=== PATIENT | female | born 1990 | race African-American/Black ===

== ENCOUNTER 2016-09-07 01:17 | Inpatient (IN) | payer OTHER ==
[~2016-09-07] VITALS: Ht 172.7 cm; Wt 166.0 kg
--- NOTE | 2016-09-07 09:33 | Operative Report ---
Operative/Inv Procedure Report Surgery Date: 09/07/16 Name of Procedure: Laparoscopic Sleeve Gastrectomy Pre-Operative Diagnosis: Morbid Obesity BMI 58, YING Post-Operative Diagnosis: Same Estimated Blood Loss: less than 50ml Surgeon/Facility Service Associate: GERARDO ZAMBRANO DO Anesthesia: general endotracheal tube IV Fluids: 1400 cc Drains: 10 Fr RUQ JOSE Drain Specimens: Stomach Complications: None Condition: Stable Operative Indication: This is a 26-year-old female presented to the office for workup for bariatric surgery. After appropriate workup was completed we discussed with the patient the band, the sleeve, and the gastric bypass. The patient chose to undergo a sleeve gastrectomy. All risks including but not limited to bleeding, infection, leak, stricture, injury to surrounding bowel/esophagus/stomach/liver/spleen, long-term reflux, DVT/PE, and mortality of 05/999 patients were discussed in detail. The patient understood everything and decided to proceed. Operative/Procedure Note Note: The patient was brought to the operating room and placed on the operating room table in supine position. Venodyne stockings were placed and adequate general endotracheal anesthesia was obtained. The patient was prepped and draped in standard surgical fashion. Began the procedure by making a 2 cm transverse incision supraumbilically and slightly to the left of the midline. Then using a 12 mm clear Visiport and a 10 mm 0 laparoscope, the abdominal cavity was accessed. Great care was taken to go through the anterior rectus sheath, the posterior rectus sheath, and through the peritoneum. Once we entered the peritoneum the abdominal cavity was insufflated to 15 mmHg. Upon initial examination no obvious gross pathology was seen. Accessory trocars were placed, 5 mm in the epigastrium for the Gabby liver retractor. The retractor was inserted and the liver was retracted anteriorly exposing the hiatus, no hiatal hernia was seen. 5 mm ports were placed in the right and left upper quadrant, a 5 mm left lateral port, and a 15 mm right lateral port. Began the procedure by mobilizing the greater curvature of the stomach approximately 7 cm from the pylorus. Some omental adhesions to the anterior abdominal wall were taken down in the left upper quadrant. Once the retrogastric space was reached the whole greater curvature was mobilized maintaining hemostasis using Harmonic scalpel. Full hiatal dissection was performed, no hiatal hernia was seen. Posterior adhesions were taken down using Harmonic scalpel as well. Once the stomach was adequately mobilized a 38 Ivorian bougie was inserted and placed along the lesser curvature of the stomach. Once the bougie was in the appropriate position will began creating our sleeve, two 60 mm black staple loads with seamguard followed by two 60 mm purple staple loads with seamguard as well. Great care was taken to leave ample room at the incisura angularis, to prevent any twisting or kinking of the sleeve, to stay lateral to the esophagogastric fat pad, and to do a full fundal excision. At the completion of the staple line the staple line was examined, it appeared intact and no obvious bleeding was noted. The bougie was removed, the sleeve was lying nicely without any twisting or kinking. The resected stomach was removed through the right lateral port site. The port and the left upper quadrant were irrigated until clear. A 10 Ivorian JOSE drain was placed through the right upper quadrant incision under the liver and over the spleen. All ports were removed under direct visualization no obvious bleeding was noted. The 15 mm port site fascia was closed using 0 Vicryl suture. The skin was closed using 4-0 Monocryl. Steri-Strips and dressings were placed. The patient was successfully extubated and transferred to the recovery room in stable condition. The patient tolerated the procedure well with no complications. Findings: no hiatal hernia, 38 Fr Bougie CC: ROSEANNE POMPA APRN
--- NOTE | 2016-09-07 09:51 | Admission Core Measures ---
Admission Lab Results I reviewed the following labs: Laboratory Tests 09/07 606 Urines Urine Test NEGATIVE Admission Meds I reviewed the following Meds: Current Medications Sig/Yolanda Start time Last Medication Dose Stop Time Status Admin Cefazolin Sodium 3,000 MG ONCE 09/07 NR (Kefzol-Ancef Inj) 09/07 2358 Heparin Sodium 5,000 UNIT ONCE 09/07 AC (Porcine) 09/07 2358 Acute Coronary Syndrome Inclusion Criteria ACS Diagnosis No Inpatient Core Measures LDL Reminder: If No, please order W/I first 24hr of stay Congestive Heart Failure Inclusion Criteria CHF Diagnosis No Cerebrovascular accident Inclusion Criteria CVA/TIA Diagnosis No Inpatient Core Measures Bedside Swallow Eval Reminder: If BSE failed, place ST order Antithrombotic Reminder: Order Antithrombotic Medication by end of day 2 Antithrombotic Reminder: Document Reason Antithrombotic Not ordered by end of day 2 AFIB/Flutter Reminder: If Present, add to problem list AFIB/Flutter Reminder: Order Anticoag Medication for pts with AFIB/Flutter Atherosclerosis Reminder: If Present, add to problem list LDL Reminder: If No, please order W/I first 24hr of stay PT Order Reminder: If No, please order Venous thromboembolism Inpatient Core Measures VTE Risk Factors: Obesity, Surgery No [facility] VTE prophylaxis d/t No contraindications No VTE Pharm Prophylaxis d/t No contraindications Inclusion Criteria - Per Current guidelines, there needs to be overlap - treatment for the first 5 days of Warfarin therapy. - Parenteral Anticoagulation (IV or SC) needs to be - given along with Warfarin therapy. VTE Diagnosis No VTE Type NONE VTE Confirmed by (Test) NONE Problem List As ranked by this Provider includes Assessment & Plan 1. S/P laparoscopic sleeve gastrectomy 2. Sleep apnea 3. Morbid obesity
[2016-09-07] MEDS ORDERED: LOVENOX40 MG/0.1 SC (09:52)
[2016-09-07] MEDS ORDERED: HYCET 7.5 MG-3473 ML PO (09:52)
[2016-09-07] MEDS ORDERED: PROTONIX40 M3 PO (09:52)
[2016-09-07 11:35] VITALS: BP 126/83
--- NOTE | 2016-09-07 12:00 | Patient Discharge Instructions ---
Discharge Instructions General Discharge Information You were seen/treated for: MORBID OBESITY, HX SLEEP APNEA You had these procedures: LAPAROSCOPIC SLEEVE GASTRECTOMY (09/07/16) Watch for these problems: FEVER>101.3, INCREASED PAIN, REDNESS/SWELLING/DRAINAGE, SHORTNESS OF BREATH, CHEST PAIN, DIZZINESS No bath, but you may shower: Yes Other wound care: OK TO REMOVE OUTER DRESSINGS. LEAVE WHITE STERI STRIPS IN PLACE. EXPECT DRAINAGE FROM PREVIOUS DRAIN SITE FOR A FEW DAYS. Diet Continue normal diet: No Recommended Diet: Bariatric Additional DIET Information: WEEKLY BARIATRIC STAGE DIET ADVANCEMENTS TOLERATED, DIRECTED Activity Full Activity/No Limits: No Activity Self Limited: Yes Pounds, do NOT lift more than: 10 Other activity limits: WALK FREQUENTLY Acute Coronary Syndrome Inclusion Criteria At DC or during hospital stay patient has or had the following: ACS DIAGNOSIS No Discharge Core Measures Meds if any: Prescribed or Continued at Discharge Meds if any: NOT Prescribed or Continued at Discharge Congestive Heart Failure Inclusion Criteria At DC or during hospital stay patient has or had the following: CHF DIAGNOSIS No Discharge Core Measures Meds if any: Prescribed or Continued at Discharge Meds if any: NOT Prescribed or Continued at Discharge Cerebrovascular accident Inclusion Criteria At DC or during hospital stay patient has or had the following: CVA/TIA Diagnosis No Discharge Core Measures Meds if any: Prescribed or Continued at Discharge Meds if any: NOT Prescribed or Continued at Discharge Venous thromboembolism Inclusion Criteria VTE Diagnosis No VTE Type NONE VTE Confirmed by (Test) NONE Discharge Core Measures - Per Current guidelines, there needs to be overlap - treatment for the first 5 days of Warfarin therapy. - If discharged on Warfarin prior to 5 days of - overlap therapy, the patient will need to be - assessed for post discharge needs including - *Post discharge parental anticoagulation - *Warfarin and/or parental anticoagulation education - *Follow up date to check INR post discharge At least 5 days overlap therapy as Inpatient No Meds if any: Prescribed or Continued at Discharge Note: Overlap Therapy is Warfarin and Anticoagulant Meds if any: NOT Prescribed or Continued at Discharge
--- NOTE | 2016-09-07 13:05 | PN- Bariatrics ---
Subjective Subjective: The patient was seen this afternoon postoperatively. She complains of epigastric discomfort but is otherwise comfortable with current pain regiment. She is tolerating small amounts of a stage I diet without nausea and has yet to void postoperatively. Patient has no other complaints at the current time and denies any chest pain or difficulty breathing. Objective Vital Signs and I&Os Vital Signs Date Time Temp Pulse Resp B/P B/P Pulse O2 O2 Flow FiO2 Mean Ox Delivery Rate 09/07 1135 97.5 71 16 126/83 100 Nasal 3.0L Cannula 09/07 1130 100 Nasal 3.0L Cannula Intake & Output 09/07 0800 09/07 0000 09/06 1600 09/06 0800 09/06 0000 Intake Total Output Total Balance Patient 366 lb 366 lb Weight Weight Reported by Patient Measurement Method Physical Exam: Gen.: Alert and in no obvious distress Skin: Warm and dry Cardiac: S1 and S2 regular Pulmonary: Bilateral breath sounds are equal and decreased at bases Abdomen: Soft, obese, appropriate incisional tenderness, bowel sounds sluggish. Port sites are clean, dry, and intact. His JOSE 1 holding suction with serosanguineous drainage in the bulb. Extremities: Bilateral lower extremities are warm without calf tenderness or significant edema. Assessment/Plan Assessment/Plan Assessment: 26-year-old female status post laparoscopic sleeve gastrectomy. Postoperative the patient is progressing as expected and her pain is under adequate control. Plan: Continue on stage I diet until midnight then remain nothing by mouth for upper GI series in the morning IV hydration Strict I's and O's and monitor for postoperative void GI and DVT prophylaxis, start Lovenox education Continue current pain regiment 2 doses of postoperative prophylactic antibiotics Incentive spirometry Out of bed and ambulate Follow-up morning laboratory studies Core Measures/Miscellaneous Venous Thromboembolism VTE Risk Factors: Age > 40, Obesity, Surgery VTE Contraindications: No Contraindications VTE Diagnosis: No VTE Type: NONE VTE Confirmed by (Test): NONE Beta Penny Is Beta Penny a Home Med? No Antibiotics Is Patient on Antibiotics? Yes If Yes: prophylaxis
--- NOTE | 2016-09-07 13:22 | NUR ---
PT ARRIVED TO THE FLOOR AT 1130 FROM THE PACU. DROWSY, ORIENTED X 3. VSS. 3L NC IN PLACE. ORIENTED TO ROOM. CALL DAVALOS IN REACH. DSG X 6 TO ABD C/D/I. JOSE DRAIN TO R SIDE ABD. IVF INFUSING. PT C/O 5/10 PAIN IN ABD. DOES NOT WANT MEDS AT THIS TIME. DIET ORDERED. ISOPURE ORDERED. CARE OF THE PATIENT WAS TAKEN OVER BY ARIADNA BOYD AT 1215.
[2016-09-07 14:01] VITALS: BP 124/74
--- NOTE | 2016-09-07 15:52 | Surg Short-stay <48hrs Dis Sum ---
Visit Information Visit Dates Admission Date: 09/07/16 Discharge Date: 09/09/16 Surgical Short Stay DC Summary Admission Diagnosis: Morbid Obesity BMI 58, YING Final Diagnosis: Morbid Obesity BMI 58, YING Procedure(s): Surgery Date: 09/07/16 Name of Procedure: Laparoscopic Sleeve Gastrectomy Summary/Significant Findings: Electively scheduled laparoscopic sleeve gastrectomy on 09/07/16 by , which went routinely. Pain control transitioned from iv to oral medication. An upper gi study was done on post-op day#1 due to nausea, which was negative for leak or obstruction. Lovenox teaching done prior to discharge home, due to her risk score 6. Her JOSE drain was removed prior to her discharge. She was tolerating a stage 1 bariatric diet prior to being discharged to home on post-op day#2. Condition at Discharge: stable Discharge Disposition: home or self care Discharge instructions provided to patient/family: Yes Post discharge follow-up plan: follow up with in one week
[2016-09-07 16:00] VITALS: BP 95/47
[2016-09-07 18:12] VITALS: BP 114/80
[2016-09-07 20:27] VITALS: BP 132/82
--- NOTE | 2016-09-08 00:03 | NUR ---
AT 2300 PT VERY NAUSEAUS. DUE TO ZOFRAN BEING GIVEN AT 730 PT COULD NOT RECEIVE NEXT DOSE. SURIGCAL PA BATTERY REPAIRER PAGED. PHENEGREN ORDERED 50 MG GIVEN. PT STILL NAUSUEAS AND VOMITED ABOUT 20MLS AT OF DARK BROWN EMISIS AT 2345. SURGICAL PA NOTIFIED AGAIN AT 2346. PER SURGICAL PA WAIT AN HOUR TO GIVE ZOFRAN AND KEEP AN EYE ON PATIENT.
[2016-09-08 00:30] VITALS: BP 151/90
[2016-09-08 04:02] VITALS: BP 112/72
--- NOTE | 2016-09-08 07:09 | PN- Bariatrics ---
Subjective Subjective: The patient was seen this morning postoperatively day #1. She still complains of some minor epigastric discomfort but is otherwise relatively comfortable. She had some mild nausea and emesis yesterday evening which has resolved and she is no longer nauseous. She has no other complaints at the current time and denies any chest pain or difficulty breathing. Objective Vital Signs and I&Os Vital Signs Date Time Temp Pulse Resp B/P B/P Pulse O2 O2 Flow FiO2 Mean Ox Delivery Rate 09/08 0600 97 Nasal 2.0L Cannula 09/08 0402 99.4 85 16 112/72 95 Room Air 09/08 0043 Room Air 09/08 0030 99.4 90 20 151/90 99 Room Air 09/07 2027 98.0 89 20 132/82 98 Room Air 09/07 1812 98.6 82 19 114/80 99 / 1800 95 Room Air 09/07 1600 97.7 71 20 95/47 94 / 1401 98.0 99 20 124/74 100 Nasal 2.0L Cannula 09/07 1304 Nasal 3.0L Cannula 09/07 1135 97.5 71 16 126/83 100 Nasal 3.0L Cannula 09/07 1130 100 Nasal 3.0L Cannula Intake & Output 09/08 0800 09/08 0000 09/07 1600 09/07 0800 09/07 0000 05/ 1600 Intake Total 1700 975 650 Output Total 740 485 10 Balance 960 490 640 Intake, IV 1700 925 500 Intake, Oral 50 150 Output, 40 85 Drainage Output, 10 Emesis Output, Urine 700 400 Patient 366 lb 366 lb Weight Weight Reported by Patient Measurement Method Physical Exam: Gen.: Alert and in no obvious distress Skin: Warm and dry Abdomen: Soft, obese, appropriate incisional tenderness, bowel sounds positive. Port sites are clean, dry, and intact. There is a JOSE 1 holding suction with serosanguineous drainage in the bulb. Extremities: Bilateral lower extremities are warm without calf tenderness or significant edema. Assessment/Plan Assessment/Plan Assessment: 26-year-old female status post laparoscopic sleeve gastrectomy postoperative day #1. The patient is progressing as expected, her pain is under adequate control and she is currently without nausea. Plan: Cancel upper GI series and start bariatric stage I diet Decrease IV fluids Out of bed and ambulate Keep JOSE to self suction Follow-up morning laboratory studies GI and DVT prophylaxis Lovenox education Incentive spirometry Core Measures/Miscellaneous Venous Thromboembolism VTE Risk Factors: Age > 40, Obesity, Surgery VTE Contraindications: No Contraindications VTE Diagnosis: No VTE Type: NONE VTE Confirmed by (Test): NONE Beta Penny Is Beta Penny a Home Med? No Antibiotics Is Patient on Antibiotics? No
[2016-09-08 07:46] LABS: ABSOLUTE BASOPHIL COUNT 0 /CUMM (0.0-0.2); ABSOLUTE EOSINOPHIL COUNT 0 /CUMM (0.0-0.7); ABSOLUTE GRANULOCYTE CT 6.4 /CUMM (1.4-6.5); ABSOLUTE LYMPH COUNT 1.1 /CUMM (1.2-3.4); ABSOLUTE MONOCYTE COUNT 0.9 /CUMM (0.10-0.60); BASOPHIL % 0 % (0.0-2.0); EOSINOPHIL % 0 % (0-5); GRANULOCYTE % 76.2 % (42.2-75.2); HEMATOCRIT 27.9 % (37-47); MEAN CORPUSCULAR HGB 21.4 PG (27.0-31.0); MEAN CORPUSCULAR HGB CONC 31.3 G/DL (33.0-37.0); MEAN CORPUSCULAR VOLUME 68.4 FL (81.0-99.0); MEAN PLATELET VOLUME 8.1 FL (7.4-10.4); PLATELET COUNT 358 /CUMM (130-400); RED BLOOD CELL CT 4.08 /CUMM (4.20-5.40); WHITE BLOOD CELL COUNT 8.4 /CUMM (4.8-10.8)
[2016-09-08 08:20] VITALS: BP 118/72
--- NOTE | 2016-09-08 08:22 | NUR ---
NURSING NOTE: PT VOMITED APPROX 45ML OF THICKER LIGHT BROWN LIQUID, STARTED STAGE 1 BARITRIC DIET AROUND 0730AM, HAD A SIP OF WATER AND A SIP OF THE PROSOURCE DILUTED WITH POWERADE PER NAIMA DIETIAN INSTEAD OF ISOPURE. IV ZOFRAN AND PROTONIX GIVEN. PT DENIES NAUSEA AT THIS TIME, STATES "I THINK IT WAS THE PROTEIN DRINK." MARLEE MCNALLY [phone] CALLED AND MADE AWARE, KATIE MCNALLY 343 ALSO NOTIFIED, NO FURTHER ORDERS AT THIS TIME, CONT TO MONITOR
--- NOTE | 2016-09-08 11:03 | NUR ---
NURSING NOTE: PT VOMITED APPROX 75ML OF LIGHT BROWN LIQUID, NO BLOOD NOTED.PT RECEIVED IV DECADRON; SEE EMAR AND PREVIOUSLY HAD ZOFRAN AROUND 0820AM ; SEE EMAR. KATIE MCNALLY CALLED AND MADE AWARE. PT ON STAGE 1 BARIATRIC DIET BUT HAS NOT TAKEN ANYTHING PO SINCE AROUND 0800AM PER PT. CONT TO MONITOR.
--- NOTE | 2016-09-08 13:32 | NUR ---
NURSING NOTE: PT LEFT FLOOR VIA STRETCHER WITH DISTRIBUTION FOR UPPER GI SERIES, NPO, A/OX3, ROOM AIR, IVF PER MD ORDER. JOSE DRAIN INTACT. AWAIT RETURN TO FLOOR. DENIES COMPLAINTS, TICKET TO RIDE COMPLETE.
--- NOTE | 2016-09-08 14:35 | NUR ---
NURSING NOTE: PT BACK TO FLOOR VIA STRETCHER WITH DISTRIBUTION FROM UPPER GI SERIES XRAY, PT AWAKE, A/OX3, ROOM AIR, VITALS OBTAINED, JOSE DRAIN EMPTIED 30ML SERO SANG DRAINAGE THIS SHIFT. NPO; AWAITING FURHTER ORDERS AFTER XRAY RESULTS. PT DENIES NAUSEA AND PAIN. PT AMBULATING IN HALLWAY WITH FRIEND.
[2016-09-08 14:42] VITALS: BP 120/78
--- NOTE | 2016-09-08 15:06 | RADIOLOGY REPORT ---
EXAMINATION: FL UPPER GI SERIES CLINICAL INFORMATION: 26-year-old female, status post day 1 post op Sleeve gastrectomy. Baseline postoperative study to rule out leak. Nausea. COMPARISON: None TECHNIQUE: A single contrast upper GI series with fluoroscopy and spot imaging was performed. The patient ingested Gastrografin (total of 30 mL of Gastroview) without difficulty and was evaluated in the semi-upright and recumbent positions. FINDINGS: The initial spot radiograph shows a surgically placed drain. The Gastrografin swallow study shows unremarkable appearance of the distal part of the thoracic esophagus. The GE junction is unremarkable. The residual small tubular-shaped stomach is well visualized and shows expected postsurgical changes of Sleeve gastrectomy. Specifically, no evidence of any leak is visualized. No oral contrast was seen to propagate across the stomach into the duodenum and adjacent small bowel loops. FLUOROSCOPY TIME: 1 minute, 5 seconds. NUMBER OF IMAGES: 6 series were obtained. Spot radiograph of the upper abdomen was obtained prior to the upper GI procedure. IMPRESSION: Normal postop changes of Sleeve gastrectomy. Specifically, no evidence of any leak visualized.
[2016-09-08 22:46] VITALS: BP 128/71
[2016-09-09 06:33] VITALS: BP 122/82
[2016-09-09 08:02] LABS: ABSOLUTE BASOPHIL COUNT 0 /CUMM (0.0-0.2); ABSOLUTE EOSINOPHIL COUNT 0 /CUMM (0.0-0.7); ABSOLUTE GRANULOCYTE CT 5.7 /CUMM (1.4-6.5); ABSOLUTE LYMPH COUNT 1.1 /CUMM (1.2-3.4); ABSOLUTE MONOCYTE COUNT 0.6 /CUMM (0.10-0.60); BASOPHIL % 0.6 % (0.0-2.0); EOSINOPHIL % 0 % (0-5); GRANULOCYTE % 76.8 % (42.2-75.2); MEAN CORPUSCULAR HGB 21.2 PG (27.0-31.0); MEAN CORPUSCULAR VOLUME 68.5 FL (81.0-99.0); MEAN PLATELET VOLUME 8.4 FL (7.4-10.4); PLATELET COUNT 355 /CUMM (130-400); RBC DISTRIBUTION WIDTH 18.2 % (11.5-14.5); RED BLOOD CELL CT 4.24 /CUMM (4.20-5.40); WHITE BLOOD CELL COUNT 7.5 /CUMM (4.8-10.8)
--- NOTE | 2016-09-09 08:32 | PN- Bariatrics ---
Subjective Subjective: Reports nausea has resolved. Tolerating stage 1 bariatric diet. Upper gi study negative for leak yesterday. Ambulating well. No dizziness. No shortness of breath. No chest pains. Voiding well. Passing flatus and feels like bm is going to happen shortly. Anticipates discharge to home today. Reports understanding of lovenox teaching and has prescription filled already. Objective Vital Signs and I&Os Vital Signs Date Time Temp Pulse Resp B/P B/P Pulse O2 O2 Flow FiO2 Mean Ox Delivery Rate 09/09 08 98 Room Air 09/09 0633 98.2 68 20 122/82 98 Room Air 09/09 0000 97 Room Air 09/08 2246 98.6 65 18 128/71 97 Room Air 09/08 1600 96 Room Air 09/08 1442 98.3 68 20 120/78 99 Room Air Intake & Output 09/09 1600 09/09 0800 09/09 0000 09/08 1600 09/08 0800 09/08 0000 Intake Total 670 297 307 6394 1625 Output Total 20 370 650 740 495 Balance 650 330 10 960 1130 Intake, IV 610 445 890 3771 1425 Intake, Oral 60 100 60 200 Number 0 0 Bowel Movements Output, 20 20 30 40 85 Drainage Output, 120 10 Emesis Output, Urine 350 500 700 400 Physical Exam: General - alert & oriented x 3. comfortable. no acute distress. Lungs - clear bilaterally. no w/r/r. Cardiac - s1s2. reg. Abdomen - soft. dressings c/d/i. JOSE drain with serous drainage. Expected lizz- incisional tenderness. Extremities - warm bilaterally. no c/c/e. calves soft and nontender b/l. Current Medications: Current Medications Sig/Yolanda Start time Last Medication Dose Route Stop Time Status Admin Acetaminophen 1,000 MG Q6 09/07 1600 DC 09/08 N/A 1 UNIT IV 09/08 1214 1158 Acetaminophen/ 15 ML Q6P PRN 09/07 1145 AC Hydrocodone Bitart PO Dexamethasone 4 MG Q8H 09/08 1800 DC 09/08 Dextrose/Water 50 ML IV 09/08 1829 1845 Dexamethasone 4 MG Q8 09/08 0915 DC 09/08 Dextrose/Water 50 ML IV 09/08 1429 1037 Dextrose/Sodium 1,000 ML Q8H 09/07 1145 AC 09/08 Chloride IV 1844 Enoxaparin Sodium 40 MG 0600 09/08 0600 AC 09/09 SC 0530 Hydromorphone HCl 1 MG Q4P PRN 09/07 1145 AC IV Ondansetron HCl 4 MG Q6P PRN 09/07 1145 AC 09/08 IV 0822 Pantoprazole Sodium 40 MG DAILY 09/08 1000 AC 09/08 IV 0822 Simethicone 40 MG Q6P PRN 09/07 1145 AC 09/09 PO 0529 Results Last 48 Hours of Labs: Laboratory Tests 09/09 09/08 0630 0702 Chemistry Sodium (137 - 145 mmol/L) 144 141 Potassium (3.5 - 5.1 mmol/L) 4.1 3.9 Chloride (98 - 107 mmol/L) 106 104 Carbon Dioxide (22 - 30 mmol/L) 28 26 Anion Gap (5 - 16) 11 11 BUN (7 - 17 mg/dL) 5 L 3 L Creatinine (0.5 - 1.0 mg/dL) 0.6 0.6 Estimated GFR (>60 ml/min) > 60 > 60 BUN/Creatinine Ratio (7 - 25 %) 8.3 5.0 L Glucose (65 - 99 mg/dL) 114 H Magnesium (1.6 - 2.3 mg/dL) 1.9 1.8 Hematology CBC w Diff NO MAN DIFF REQ NO MAN DIFF REQ WBC (4.8 - 10.8 /CUMM) 7.5 8.4 RBC (4.20 - 5.40 /CUMM) 4.24 4.08 L Hgb (12.0 - 16.0 G/DL) 9.0 L 8.7 L Hct (37 - 47 %) 29.0 L 27.9 L MCV (81.0 - 99.0 FL) 68.5 L 68.4 L MCH (27.0 - 31.0 PG) 21.2 L 21.4 L RDW (11.5 - 14.5 %) 18.2 H 18.0 H Plt Count (130 - 400 /CUMM) 355 358 MPV (7.4 - 10.4 FL) 8.4 8.1 Gran % (42.2 - 75.2 %) 76.8 H 76.2 H Lymphocytes % (20.5 - 51.1 %) 14.5 L 12.6 L Monocytes % (1.7 - 9.3 %) 8.1 11.2 H Eosinophils % (0 - 5 %) 0 0 Basophils % (0.0 - 2.0 %) 0.6 0 L Absolute Granulocytes (1.4 - 6.5 /CUMM) 5.7 6.4 Absolute Lymphocytes (1.2 - 3.4 /CUMM) 1.1 L 1.1 L Absolute Monocytes (0.10 - 0.60 /CUMM) 0.6 0.9 H Absolute Eosinophils (0.0 - 0.7 /CUMM) 0 0 Absolute Basophils (0.0 - 0.2 /CUMM) 0 0 PUBS MCHC (33.0 - 37.0 G/DL) 31.0 L 31.3 L Assessment/Plan Assessment/Plan This 26-year-old female is POD#2 s/p laparoscopic sleeve gastrectomy, with resolution of nausea tolerating stage 1 batriatric diet pain controlled ambulating well lovenox - dvt ppx. teaching done for home. protonix - gi ppx JOSE drain removed seen by this morning stable for d/c home today Core Measures/Miscellaneous Venous Thromboembolism VTE Risk Factors: Age > 40, Obesity, Surgery VTE Contraindications: No Contraindications VTE Diagnosis: No VTE Type: NONE VTE Confirmed by (Test): NONE Beta Penny Is Beta Penny a Home Med? No Antibiotics Is Patient on Antibiotics? No
== END 2016-09-09 11:12 | DRG 403 ==
LOC: 2NB 01:17 → SDA 01:17 → ENRESERV 10:11 → 2NB 11:23 → ENPENDDIS 09-09 08:03 → 2NB 09-09 11:12
PROVIDERS: Physician Assistant; Physician Assistant Surgical; ADMIT Surgery
PROC: 0DB64Z3 Excision of Stomach, Percutaneous Endoscopic Approach, Vertical (ICD-10-PCS; principal; 2016-09-07)
DX: E66.01 Morbid (severe) obesity due to excess calories (principal); Z68.43 Body mass index [BMI] 50.0-59.9, adult; G47.33 Obstructive sleep apnea (adult) (pediatric)
CPT/HCPCS: 2NBSP; 36415; 74240; 81025; 82436; 88307; J0131; J0690; J1100; J1170; J1644; J1650; J2405; J2550; J7042